=== PATIENT | female | born 2000 | race Caucasian/White ===

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

== ENCOUNTER 2019-03-30 21:54 | Emergency (ER) | payer OTHER ==
[~2019-03-30] VITALS: Ht 170.2 cm; Wt 95.4 kg
[~2019-03-30 21:54] MED LIST: [UNRECOGNIZED DRUG - OTHER]
[2019-03-30 21:58] VITALS: BP 136/83
[2019-03-30] MEDS ORDERED: METHOCARBAMOL 750 MG TABLET ONE (23:18)
[2019-03-30] MEDS ORDERED: METHOCARBAMOL 750 MG TABLET PO ONE (23:30)
== END 2019-03-30 23:36 | disposition home or self-care (01) ==
LOC: ED 23:21
DX: S16.1XXA Strain of muscle, fascia and tendon at neck level, initial encounter (principal); S06.320A Contusion and laceration of left cerebrum without loss of consciousness, initial encounter; S06.310A Contusion and laceration of right cerebrum without loss of consciousness, initial encounter; V49.49XA Driver injured in collision with other motor vehicles in traffic accident, initial encounter; Y93.89 Activity, other specified; Y92.410 Unspecified street and highway as the place of occurrence of the external cause; Y99.8 Other external cause status
CPT/HCPCS: 70450; 72125; 99284